=== PATIENT | male | born 1985 | race Caucasian/White ===

== ENCOUNTER 2021-08-19 12:42 | Outpatient (CLI) | payer OTHER, SELFPAY ==
--- NOTE | 2021-08-19 13:12 | RAD_ITS ---
History: PAIN Left knee 2 views: Findings: No acute fracture, subluxation or joint effusion. No joint space narrowing or soft tissue abnormality. IMPRESSION: No acute abnormality. at 1448 Reported and signed by: Leonardo Rondon MD Electronically Signed: Leonardo Rondon MD at 14:47 EST , RAD/Knee 1 or 2 Views
--- NOTE | 2021-08-19 13:12 | RAD_ITS ---
History: PAIN Right knee 2 views: Findings: No acute fracture, subluxation or joint effusion. No joint space narrowing or soft tissue abnormality. Osteochondroma arises from the proximal fibula. IMPRESSION: No acute abnormality. Proximal fibular osteochondroma. at 1447 Reported and signed by: Leonardo Rondon MD Electronically Signed: Leonardo Rondon MD at 14:46 EST , RAD/Knee 1 or 2 Views
== END 2021-08-19 23:59 | disposition home or self-care (01) ==
LOC: RAD 12:45
PROVIDERS: PCP Internal Medicine; Referring Provider Internal Medicine; Visit Provider Internal Medicine
DX: M25.561 Pain in right knee (principal); M25.562 Pain in left knee
CPT/HCPCS: 73560

== ENCOUNTER 2021-11-21 16:09 | Emergency (ER) | payer OTHER, SELFPAY ==
[2021-11-21 16:11] VITALS: BP 145/95; PULSE 98; RESP 22; TEMP 37.2; O2SAT 100; BMI 28.7
[2021-11-21 16:13] VITALS: BP 145/95; PULSE 98; RESP 22; TEMP 37.2; O2SAT 100
[2021-11-21] MEDS: 0.9% Normal Saline 1,000 ML 1000 ML IV ×2 (16:15→17:13)
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
[2021-11-21] MEDS: BACITRACIN 15 GM Tube 1 APPLIC TOPICAL (16:23)
[2021-11-21] MEDS: Morphine 4 MG/ML Syringe IV (16:24)
[2021-11-21] MEDS: Ondansetron 4 MG/2 ML Vial IV (16:25)
[2021-11-21] MEDS: Diphth,Pertuss(Acell),Tet Vac 0.5 ML Vial IM (16:25)
[2021-11-21] MEDS: HYDROmorphone 1 MG/ML Syringe IV ×2 (16:35→17:12)
--- NOTE | 2021-11-21 16:46 | NURSING ---
CALLED [facility], ETA IS 30 MIN
[2021-11-21] MEDS: fentaNYL 100 MCG/2 ML Ampul 50 MCG IV (16:52)
--- NOTE | 2021-11-21 17:00 | CASEMGMT ---
SW was requested for support for patient and family. 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 SW spoke with both patient and his and provided support. Patient's is aware patient will be transferred to [facility]. Patient's plans on going home once patient leaves and will then go to [place]. Patient's denied any further needs or for SW to make any calls. Also, SW wanted to provide privacy for both as patient was in a lot of pain. Renetta Kuhn WATCH REPAIR TECHNICIAN [facility]
[2021-11-21 17:18] VITALS: BP 151/90; PULSE 98; RESP 18; O2SAT 100
== END 2021-11-21 17:20 | disposition short-term general hospital (02) ==
PROVIDERS: Emergency Provider Emergency Medicine; PCP Internal Medicine; Visit Provider Emergency Medicine
DX: T21.22XA Burn of second degree of abdominal wall, initial encounter (principal); T22.212A Burn of second degree of left forearm, initial encounter; T20.20XA Burn of second degree of head, face, and neck, unspecified site, initial encounter; J45.909 Unspecified asthma, uncomplicated; Z79.899 Other long term (current) drug therapy; W40.1XXA Explosion of explosive gases, initial encounter
CPT/HCPCS: 90715; 96372; 96374; 96375; 96376; 99285; J7030; A4216; J2405